=== PATIENT | female | born 1995 | race Caucasian/White ===

== ENCOUNTER 2024-06-03 14:47 | Emergency (ER) | payer OTHER ==
[2024-06-03 15:40] VITALS: TEMP 98.6
--- NOTE | 2024-06-03 15:40 | ED ---
Back Pain HPI - General Chief Complaint: Back Pain/Injury Stated Complaint: Fall-Back Pain Time Seen by Provider: 06/03/24 15:00 Source: patient, RN notes reviewed Limitations: no limitations - History of Present Illness Initial Comments: This is a 28-year-old female presenting to the emergency department for complaints of back pain. Patient states that earlier today she was in her bedroom when she fell hitting the lower part of her back on the frame of her bed. Patient denies hitting her head or loss conscious at time of the injury. She is complaining of pain to the lumbar spine that is nonradiating. She denies loss of bladder bowel continence or saddle esthesia since the injury. - Related Data Allergies Allergy/AdvReac Type Severity Reaction Status Date / Time sulfamethoxazole Allergy Nausea & Verified 06/03/24 15:40 [From Bactrim] Vomiting trimethoprim [From Bactrim] Allergy Nausea & Verified 06/03/24 15:40 Vomiting Review of Systems ROS Statement: Those systems with pertinent positive or pertinent negative responses have been documented in the HPI. ROS Other: All systems not noted in ROS Statement are negative. Past Medical History Past Medical History: No Reported History Past Surgical History: Section Additional Past Surgical History / Comment(s): c section x 4 Past Psychological History: No Psychological Hx Reported Smoking Status: Never smoker Past Alcohol Use History: None Reported Past Drug Use History: None Reported General Exam Limitations: no limitations General appearance: alert, in no apparent distress Neck exam: Present: normal inspection. Absent: tenderness, meningismus, lymphadenopathy Respiratory exam: Present: normal lung sounds bilaterally. Absent: respiratory distress, wheezes, rales, rhonchi, stridor Cardiovascular Exam: Present: regular rate, normal rhythm, normal heart sounds. Absent: systolic murmur, diastolic murmur, rubs, gallop, clicks GI/Abdominal exam: Present: soft, normal bowel sounds. Absent: distended, tenderness, guarding, rebound, rigid Extremities exam: Present: normal inspection, full ROM, normal capillary refill. Absent: tenderness, pedal edema, joint swelling, calf tenderness Back exam: Present: normal inspection, tenderness (lumbar to palpation and with ROM). Absent: CVA tenderness (R), CVA tenderness (L) Skin exam: Present: warm, dry, intact, normal color. Absent: rash Course Vital Signs 06/03/24 06/03/24 15:36 18:16 Temperature 98.6 F Pulse Rate 68 70 Respiratory 18 16 Rate Blood Pressure 127/86 146/100 O2 Sat by Pulse 100 100 Oximetry Medical Decision Making - Medical Decision Making Was pt. sent in by a medical professional or institution (, [facility], [facility], urgent care, hospital, or retirement...) When possible be specific @ -No Did you speak to anyone other than the patient for history (EMS, parent, family, police, friend...)? What history was obtained from this source @ -No Did you review nursing and triage notes (agree or disagree)? Why? @ -I reviewed and agree with nursing and triage notes Were old charts reviewed (outside hosp., previous admission, EMS record, old EKG, old radiological studies, urgent care reports/EKG's, retirement records)? Report findings @ -No old charts were reviewed Differential Diagnosis (chest pain, altered mental status, abdominal pain women, abdominal pain men, vaginal bleeding, weakness, fever, dyspnea, syncope, headache, dizziness, GI bleed, back pain, seizure, CVA, palpatations, mental health, musculoskeletal)? @ -Differential Back Pain: Strain, zoster, cauda equina syndrome, epidural abscess, vertebral osteomyelitis, discitis, fracture, subluxation, disc herniation, DJD, spinal stenosis, dissection, AAA, pancreatitis, peptic ulcer disease, pyelonephritis, kidney stone, this is not meant to be an all-inclusive list. EKG interpreted by me (3pts min.). @ -None X-rays interpreted by me (1pt min.). @ -X-ray of the lumbar spine completed with no vertebral compression collapse or malalignment CT interpreted by me (1pt min.). @ -None done U/S interpreted by me (1pt. min.). @ -None done What testing was considered but not performed or refused? (CT, X-rays, U/S, labs)? Why? @ -None What meds were considered but not given or refused? Why? @ -None Did you discuss the management of the patient with other professionals (professionals i.e. , [facility], [facility], lab, RT, psych nurse, sr. social media & mobile manager, medical billing supervisor, teacher, consular officer, binder caser)? Give summary @ -No Was smoking cessation discussed for >3mins.? @ -No Was critical care preformed (if so, how long)? @ -No Were there social determinants of health that impacted care today? How? (Homelessness, low income, unemployed, alcoholism, drug addiction, transpor tation, low edu. Level, literacy, decrease access to med. care, fpc, rehab)? @ -No Was there de-escalation of care discussed even if they declined (Discuss DNR or withdrawal of care, Hospice)? DNR status @ -No What co-morbidities impacted this encounter? (DM, HTN, Smoking, COPD, CAD, Cancer, CVA, ARF, Chemo, Hep., AIDS, mental health diagnosis, sleep apnea, morbid obesity)? @ -None Was patient admitted / discharged? Hospital course, mention meds given and route, prescriptions, significant lab abnormalities, going to OR and other pertinent info. @ -Discharge. 28-year-old female presenting to emergency room with lumbar back pain. Pain is reproduced with range of motion. No red flag findings or symptoms. She is provided with Toradol for pain relief. Recommended continue supportive treatment at home. Case discussed with Dr. Gonzalez Undiagnosed new problem with uncertain prognosis? @ -No Drug Therapy requiring intensive monitoring for toxicity (Heparin, Nitro, Insulin, Cardizem)? @ -No Were any procedures done? @ -No Diagnosis/symptom? @ -Lower back pain, back strain Acute, or Chronic, or Acute on Chronic? @ -Acute Uncomplicated (without systemic symptoms) or Complicated (systemic symptoms)? @ -Uncomplicated Side effects of treatment? @ -No Exacerbation, Progression, or Severe Exacerbation? @ -No Poses a threat to life or bodily function? How? (Chest pain, [place], [place], pneumonia, PE, COPD, DKA, ARF, appy, cholecystitis, CVA, Diverticulitis, Homicidal, Suicidal, threat to staff... and all critical care pts) @ -No Disposition Clinical Impression: Lumbar back pain Disposition: HOME SELF-CARE Condition: Good Instructions (If sedation given, give patient instructions): Acute Low Back Pain (ED) Additional Instructions: Please return to the Emergency Department if symptoms worsen or any other concerns. Is patient prescribed a controlled substance at d/c from ED?: No Referrals: None,Stated [Primary Care Provider] - 1-2 days Time of Disposition: 17:42
--- NOTE | 2024-06-03 16:05 | XR ---
EXAMINATION TYPE: XR lumbar spine 3V DATE OF EXAM: 06/03/2024 3:59 PM COMPARISON: None CLINICAL INDICATION: Female, 28 years old with history of fall, pain; PHH, pain FINDINGS: Slight leftward truncal shift. 5 lumbar type vertebral bodies. Mild facet arthropathy lower lumbar sp ine. Mild degenerative disc disease L5-S1 with mild disc space narrowing. Regional body heights are p reserved and alignment is maintained. IMPRESSION: Mild spondylotic change L5-S1. No vertebral compression collapse or malalignment. [facility], Workstation: [facility], 06/03/2024 4:03 PM
[2024-06-03] MEDS: KETOROLAC 15 MG/ML 1 ML VIAL IM STA (17:27)
[2024-06-03 18:23] VITALS: BP 146/100; PULSE 70; RESP 16
== END 2024-06-03 18:51 | disposition home or self-care (01) ==
LOC: EC 14:47
DX: S39.012A Strain of muscle, fascia and tendon of lower back, initial encounter (principal); Z88.2 Allergy status to sulfonamides; W06.XXXA Fall from bed, initial encounter
CPT/HCPCS: 72100; 99283; 96372; J1885

== ENCOUNTER 2024-06-07 02:16 | Observation (INO) | payer OTHER ==
[2024-06-07] MEDS: MORPHINE SULFATE 4 MG/ML SYRINGE IV STA (03:04)
[2024-06-07] MEDS: SODIUM CHLORIDE 0.9% 500 ML 500 ML IV ONE (03:04)
[2024-06-07 03:17] LABS: Basophils # (A) 0.04 10*3/uL (0.00-0.10); Basophils % (A) 0.3 %; Eosinophils % (A) 1.5 %; HCT 31.1 % (37.2-46.3); HGB 9.7 g/dL (12.0-15.0); Lymphocytes # (A) 1.85 10*3/uL (0.90-5.00); Lymphocytes % (A) 13.4 %; MCHC 31.2 g/dL (32.0-37.0); MCV 73.7 fL (80.0-97.0); Monocytes # (A) 0.83 10*3/uL (0.20-1.00); Neutrophils # (A) 10.79 10*3/uL (1.80-7.70); Neutrophils % (A) 78.4 %; Platelet Count 396 10*3/uL (140-440); RBC 4.22 10*6/uL (4.10-5.20); RDW 17.2 % (11.5-14.5); WBC 13.76 10*3/uL (4.50-10.00)
[2024-06-07 03:20] LABS: Appearance,Urine Clear (Clear); Bilirubin,Urine Negative (Negative); Blood,Urine Negative (Negative); Color,Urine Colorless; Glucose,Urine (UA) Negative (Negative); Ketones,Urine Negative (Negative); Leukocyte Esterase,Urine Negative (Negative); Nitrite,Urine Negative (Negative); PH, Urine 7.5 (5.0-8.0); Protein,Urine Negative (Negative); Specific Gravity,Urine 1.008 (1.001-1.035); Urobilinogen,Urine <2.0 mg/dL (<2.0)
[2024-06-07 03:37] LABS: Amylase 77 U/L (30-110); C Reactive Protein <0.5 mg/dL (<1.0); Lipase 176 U/L (23-300)
[2024-06-07 03:59] LABS: ALT 16 U/L (4-34); AST 20 U/L (14-36); African American GFR (CKD) >90 (>60 ml/min/1.73 sqM); Albumin 4.3 g/dL (3.5-5.0); Alkaline Phosphatase 60 U/L (38-126); Anion Gap 13 mmol/L; Blood Urea Nitrogen 15 mg/dL (7-17); Calcium 10.2 mg/dL (8.4-10.2); Carbon Dioxide 21 mmol/L (22-30); Chloride 104 mmol/L (98-107); Glucose 101 mg/dL (74-99); Non-African American GFR(CKD) >90 (>60 ml/min/1.73 sqM); Potassium 3.9 mmol/L (3.5-5.1); Sodium 138 mmol/L (137-145); Total Bilirubin 0.4 mg/dL (0.2-1.3); Total Protein 7.5 g/dL (6.3-8.2)
--- NOTE | 2024-06-07 04:06 | CT ---
EXAM: CT Abdomen and Pelvis With Intravenous Contrast CLINICAL HISTORY: ITS.REASON CT Reason: BLQ abdominal pain TECHNIQUE: Axial computed tomography images of the abdomen and pelvis with intravenous contrast. CTDI is 17.5 mGy and DLP is 730.8 mGy-cm. This CT exam was performed using one or more of the following dose reduction techniques: automated exposure control, adjustment of the mA and/or kV according to patient size, and/or use of iterative reconstruction technique. COMPARISON: No relevant prior studies available. FINDINGS: Lung bases: Unremarkable. No mass. No consolidation. ABDOMEN: Liver: Mild enlargement of the liver. No evidence of hepatic mass. Findings suggestive of hepatic steatosis with focal fatty sparing seen along the falciform ligament. Gallbladder and bile ducts: Unremarkable. No calcified stones. No ductal dilation. Pancreas: Unremarkable. No mass. No ductal dilation. Spleen: Unremarkable. No splenomegaly. Adrenals: Unremarkable. No mass. Kidneys and ureters: Unremarkable. No solid mass. No hydronephrosis. Stomach and bowel: The stomach is decompressed although suggestion of bladder wall thickening. Fluid-filled prominent loops of small bowel are seen within the abdomen and pelvis. Mild small bowel wall thickening. No obstruction. PELVIS: Appendix: Mild enlargement of the appendix measuring 7 mm. Bladder: Mild bladder wall thickening. Reproductive: 4.5 cm cystic lesion seen within the left adnexa. The right adnexa and uterus are unremarkable. ABDOMEN and PELVIS: Intraperitoneal space: Unremarkable. No free air. No significant fluid collection. Bones/joints: No acute fracture. No dislocation. Soft tissues: Unremarkable. Vasculature: Unremarkable. No abdominal aortic aneurysm. Lymph nodes: Unremarkable. No enlarged lymph nodes. IMPRESSION: 1. Findings suggestive of infectious or inflammatory enteritis without evidence of obstruction. 2. Mild enlargement of the appendix which may represent acute appendicitis in the correct clinical setting. 3. Nonspecific bladder wall thickening. Consider correlation with urinalysis for cystitis. 4. Likely left ovarian cyst. Recommend follow-up ultrasound in 3-6 months time.
[2024-06-07] MEDS ORDERED: ONDANSETRON 4 MG/2 ML VIAL IVP PRN (04:28)
[2024-06-07] MEDS ORDERED: NALOXONE 0.4 MG/ML 1 ML VIAL IV PRN (04:28)
[2024-06-07] MEDS: AMPICILLIN-SULBACTAM 3 GM in SODIUM CHLORIDE 0.9% 100 ML IVPB SCH (05:14)
[2024-06-07] MEDS: SODIUM CHLORIDE 0.9% 1,000 ML IV SCH (05:14)
--- NOTE | 2024-06-07 05:33 | ED ---
Abdominal Pain HPI - General Chief Complaint: Abdominal Pain Stated Complaint: Abdominal Pain Source: patient, EMS Limitations: no limitations - History of Present Illness Initial Comments: This patient is a 28-year-old woman who presents to be evaluated for low abdominal pain. She indicates the suprapubic area also little bit to each side of that. She states that she had been having a little bit of low abdominal pain and then she noticed that it was much worse after she had intercourse tonight. She indicates severe cramping. No relieving factors. No fever or chills. No nausea. She has had a couple of loose bowel movements going back up to 2 days that she attributed to being stressed. She has not noted a change in urination. No vaginal discharge. Of note the patient had been seen here on Monday to have evaluation for pain in the left lumbar area of the back on the right side. She had reported having a fall and then the pain had been there after that. MD Complaint: abdominal pain, flank pain Onset/Timin -: hour(s) Location: RLQ, suprapubic Radiation: none Migration to: no migration Severity: severe Quality: aching, other (Cramping) Consistency: constant Improves With: other ([place]) Worsens With: nothing Associated Symptoms: diarrhea - Related Data Allergies Allergy/AdvReac Type Severity Reaction Status Date / Time sulfamethoxazole Allergy Nausea & Verified 06/03/24 15:40 [From Bactrim] Vomiting trimethoprim [From Bactrim] Allergy Nausea & Verified 06/03/24 15:40 Vomiting Review of Systems ROS Statement: Those systems with pertinent positive or pertinent negative responses have been documented in the HPI. ROS Other: All systems not noted in ROS Statement are negative. Constitutional: Denies: fever, chills, weakness Respiratory: Denies: cough, dyspnea Cardiovascular: Denies: chest pain, palpitations, edema Gastrointestinal: Reports: abdominal pain, diarrhea. Denies: nausea, vomiting, constipation, melena, hematochezia Genitourinary: Denies: dysuria, frequency, hematuria Musculoskeletal: Denies: back pain Skin: Denies: rash, lesions Neurological: Denies: headache, weakness Past Medical History Past Medical History: No Reported History History of Any Multi-Drug Resistant Organisms: None Reported Past Surgical History: Section Additional Past Surgical History / Comment(s): c section x 4 Past Psychological History: Anxiety Smoking Status: Never smoker Past Alcohol Use History: None Reported Past Drug Use History: None Reported General Exam Limitations: no limitations General appearance: alert, in no apparent distress Head exam: Present: atraumatic, normocephalic Eye exam: Present: normal appearance. Absent: scleral icterus, conjunctival injection ENT exam: Present: normal oropharynx Neck exam: Present: normal inspection Respiratory exam: Present: normal lung sounds bilaterally. Absent: respiratory distress, wheezes, rales, rhonchi, stridor, accessory muscle use Cardiovascular Exam: Present: regular rate, normal rhythm, normal heart sounds. Absent: systolic murmur, diastolic murmur, rubs, gallop GI/Abdominal exam: Present: soft, tenderness. Absent: distended, guarding, rebound, rigid, pulsatile mass, hernia External exam: Present: normal external exam. Absent: erythema, swelling, lesions, ecchymosis Speculum exam: Present: normal speculum exam. Absent: erythema, vaginal discharge, cervical discharge, vaginal bleeding, tissue, laceration Extremities exam: Present: normal inspection Back exam: Present: normal inspection. Absent: CVA tenderness (R), CVA tenderness (L) Neurological exam: Present: alert Skin exam: Present: warm, dry, intact, normal color. Absent: rash Course Vital Signs 06/07/24 06/07/24 06/07/24 02:18 03:09 05:15 Temperature 99.0 F Pulse Rate 127 H 67 68 Respiratory 20 16 18 Rate Blood Pressure 91/75 113/76 117/67 O2 Sat by Pulse 100 100 99 Oximetry Medical Decision Making - Lab Data Result diagrams: 06/07/24 02:59 06/07/24 02:59 Lab Results 06/07/24 06/07/24 06/07/24 Range/Units 02:59 02:59 02:59 WBC 13.76 H (4.50-10.00) 10*3/uL RBC 4.22 (4.10-5.20) 10*6/uL Hgb 9.7 L (12.0-15.0) g/dL Hct 31.1 L (37.2-46.3) % MCV 73.7 L (80.0-97.0) fL MCH 23.0 L (27.0-32.0) pg MCHC 31.2 L (32.0-37.0) g/dL Plt Count 396 (140-440) 10*3/uL MPV 10.0 (9.5-12.2) fL Immature Gran % (Auto) 0.4 % Neutrophils % 78.4 % Lymphocytes % 13.4 % Monocytes % 6.0 % Eosinophils % 1.5 % Basophils % 0.3 % Immature Gran # 0.05 H (0.00-0.04) 10*3/uL Neutrophils # 10.79 H (1.80-7.70) 10*3/uL Lymphocytes # 1.85 (0.90-5.00) 10*3/uL Monocytes # 0.83 (0.20-1.00) 10*3/uL Eosinophils # 0.20 (0.04-0.35) 10*3/uL Basophils # 0.04 (0.00-0.10) 10*3/uL Sodium (137-145) mmol/L Potassium (3.5-5.1) mmol/L Chloride (98-107) mmol/L Carbon Dioxide (22-30) mmol/L Anion Gap mmol/L BUN (7-17) mg/dL Creatinine (0.52-1.04) mg/dL Est GFR (CKD-EPI)AfAm (>60 ml/min/1.73 sqM) Est GFR (CKD-EPI)NonAf (>60 ml/min/1.73 sqM) Glucose (74-99) mg/dL Plasma Lactic Acid Jovan 1.1 (0.7-2.0) mmol/L Calcium (8.4-10.2) mg/dL Total Bilirubin (0.2-1.3) mg/dL AST (14-36) U/L ALT (4-34) U/L Alkaline Phosphatase (38-126) U/L C-Reactive Protein <0.5 (<1.0) mg/dL Total Protein (6.3-8.2) g/dL Albumin (3.5-5.0) g/dL Amylase 77 (30-110) U/L Lipase 176 (23-300) U/L Urine Color Urine Appearance (Clear) Urine pH (5.0-8.0) Ur Specific [place] (1.001-1.035) Urine Protein (Negative) Urine Glucose (UA) (Negative) Urine Ketones (Negative) Urine Blood (Negative) Urine Nitrite (Negative) Urine Bilirubin (Negative) Urine Urobilinogen (<2.0) mg/dL Ur Leukocyte Esterase (Negative) Urine HCG, Qual (Not Detectd) 06/07/24 06/07/24 06/07/24 Range/Units 02:59 03:05 03:05 WBC (4.50-10.00) 10*3/uL RBC (4.10-5.20) 10*6/uL Hgb (12.0-15.0) g/dL Hct (37.2-46.3) % MCV (80.0-97.0) fL MCH (27.0-32.0) pg MCHC (32.0-37.0) g/dL Plt Count (140-440) 10*3/uL MPV (9.5-12.2) fL Immature Gran % (Auto) % Neutrophils % % Lymphocytes % % Monocytes % % Eosinophils % % Basophils % % Immature Gran # (0.00-0.04) 10*3/uL Neutrophils # (1.80-7.70) 10*3/uL Lymphocytes # (0.90-5.00) 10*3/uL Monocytes # (0.20-1.00) 10*3/uL Eosinophils # (0.04-0.35) 10*3/uL Basophils # (0.00-0.10) 10*3/uL Sodium 138 (137-145) mmol/L Potassium 3.9 (3.5-5.1) mmol/L Chloride 104 (98-107) mmol/L Carbon Dioxide 21 L (22-30) mmol/L Anion Gap 13 mmol/L BUN 15 (7-17) mg/dL Creatinine 0.66 (0.52-1.04) mg/dL Est GFR (CKD-EPI)AfAm >90 (>60 ml/min/1.73 sqM) Est GFR (CKD-EPI)NonAf >90 (>60 ml/min/1.73 sqM) Glucose 101 H (74-99) mg/dL Plasma Lactic Acid Jovan (0.7-2.0) mmol/L Calcium 10.2 (8.4-10.2) mg/dL Total Bilirubin 0.4 (0.2-1.3) mg/dL AST 20 (14-36) U/L ALT 16 (4-34) U/L Alkaline Phosphatase 60 (38-126) U/L C-Reactive Protein (<1.0) mg/dL Total Protein 7.5 (6.3-8.2) g/dL Albumin 4.3 (3.5-5.0) g/dL Amylase (30-110) U/L Lipase (23-300) U/L Urine Color Colorless Urine Appearance Clear (Clear) Urine pH 7.5 (5.0-8.0) Ur Specific [place] 1.008 (1.001-1.035) Urine Protein Negative (Negative) Urine Glucose (UA) Negative (Negative) Urine Ketones Negative (Negative) Urine Blood Negative (Negative) Urine Nitrite Negative (Negative) Urine Bilirubin Negative (Negative) Urine Urobilinogen <2.0 (<2.0) mg/dL Ur Leukocyte Esterase Negative (Negative) Urine HCG, Qual Not Detected (Not Detectd)
[2024-06-07] MEDS: MORPHINE SULFATE 4 MG/ML SYRINGE IV PRN (06:44)
[2024-06-07] MEDS: metroNIDAZOLE-NS PMX 500 MG in SALINE 1 100ML.BAG IVPB SCH (06:45)
[2024-06-07] MEDS: PANTOPRAZOLE 40 MG/10 ML VIAL IV SCH (09:29)
--- NOTE | 2024-06-07 11:55 | XR ---
EXAMINATION TYPE: XR chest 2V DATE OF EXAM: 06/07/2024 11:52 AM COMPARISON: None. CLINICAL INDICATION: Female, 28 years old with history of cough, Chest pain TECHNIQUE: XR chest 2V views of the chest are obtained. FINDINGS: There is no focal air space opacity. No evidence for pneumothorax. No pleural effusion. The cardiac silhouette size is within normal limits. The osseous structures are grossly intact. IMPRESSION: 1. No acute cardiopulmonary process. [facility], , 06/07/2024 11:53 AM
--- NOTE | 2024-06-07 15:20 | P.GSHP ---
History of Present Illness H&P Date: 06/07/24 CHIEF COMPLAINT: Abdominal pain HISTORY OF PRESENT ILLNESS: This is a 28-year-old female who presented the hospital with complaints of lower abdominal pain. She was initially in the ER a few days ago after a fall with complaints of right lower back pain. Patient denies any nausea or vomiting. She reports feeling constipated. However a couple of days ago she did have some loose bowel movements. She denies any nausea or vomiting. Her last bowel movement was yesterday and it was a hard stool. She is having flatus. She does report some vaginal discharge. She had a CT scan abdomen pelvis that had reported enteritis and mild enlargement of the appendix at 7 mm. Patient denies any right lower quadrant abdominal pain. She does report urinary frequency and feels like she is not emptying her bladder all the way. She has a surgical history of 4 C-sections. Patient also complains of sore throat. She reports her boyfriend was just diagnosed with strep and mono. Patient complaining of cough and congestion. Patient is anemic. Denies any blood in her stools or black stools. Patient reports she has a history of chronic anemia especially during her pregnancies and has been on iron in the past. PAST MEDICAL HISTORY: Anxiety, history of anemia PAST SURGICAL HISTORY: x 4 MEDICATIONS: See below ALLERGIES: See below SOCIAL HISTORY: No illicit drug use. REVIEW OF SYSTEMS: CONSTITUTIONAL: Denies fever or chills. HEENT: Denies blurred vision, vision changes, or eye pain. Denies hemoptysis CARDIOVASCULAR: Denies chest pain or pressure. RESPIRATORY: No shortness of breath. GASTROINTESTINAL: See HPI for pertinent findings HEMATOLOGIC: Denies bleeding disorders. GENITOURINARY: Denies any blood in urine or increased urinary frequency. SKIN: Denies pruitis. Denies rash. PHYSICAL EXAM: VITAL SIGNS: Reviewed GENERAL: Well-developed in no acute distress. HEENT: No sclera icterus. Extraocular movements grossly intact. Moist buccal mucosa. Head is atraumatic, normocephalic. No nasal drainage. ABDOMEN: Soft. Nondistended. Tenderness palpation in the suprapubic area.. Nontender in the right lower quadrant NEUROLOGIC: Alert and oriented. Cranial nerves II through XII grossly intact. LABORATORY DATA: WBC 13.76 Hgb 9.7 platelets 396 Sodium is 138 potassium 3.9 creatinine 0.66 Lactic acid 1.1 LFTs normal Lipase 176 Urinalysis negative for infection Group A strep positive IMAGING: CT scan abdomen pelvis findings suggestive of infectious or inflammatory enteritis without evidence of obstruction. Mild enlargement of the appendix may represent acute appendicitis correlate clinically. Nonspecific bladder wall thickening consider correlation with urinalysis for cystitis. Left ovarian cyst. Recommend follow-up ultrasound 3 to 6 months time. ASSESSMENT: 1. Abdominal pain 2. Gastroenteritis. Suprapubic abdominal pain with CT scan findings suggestive of infectious or inflammatory enteritis. Mild enlargement of the appendix. 3. Vaginal discharge. Ruling out STD 4. Strep throat 5. Cough and congestion 6. Possible urinary retention PLAN: -No surgical intervention planned. No right lower quadrant tenderness noted on exam -Possible gastroenteritis versus STD. PCR for chlamydia and gonorrhea pending. Continue antibiotics, Rocephin and Flagyl -Continue antibiotics for strep throat -Chest x-ray ordered for cough and congestion -Check bladder scan to rule out urinary retention -Advance diet to clear liquids -Continue IV fluids -Continue pain management -Consult medicine service for medical management -GI prophylaxis Protonix and DVT prophylaxis subcu heparin Phys[employer] Pain[employer] note has been reviewed by physician. Signing provider agrees with the documented findings, assessment, and plan of care. Past Medical History Past Medical History: No Reported History Additional Past Medical History / Comment(s): kidney stones History of Any Multi-Drug Resistant Organisms: None Reported Past Surgical History: Section Additional Past Surgical History / Comment(s): c section x 4, blood patch Past Psychological History: Anxiety Smoking Status: Never smoker Past Alcohol Use History: None Reported Past Drug Use History: None Reported Medications and Allergies Home Medications Medication Instructions Recorded Confirmed Type No Known Home Medications 06/07/24 06/07/24 History Allergies Allergy/AdvReac Type Severity Reaction Status Date / Time banana Allergy Unknown Verified 06/07/24 06:16 sulfamethoxazole AdvReac Nausea & Verified 06/07/24 06:16 [From Bactrim] Vomiting trimethoprim [From Bactrim] AdvReac Nausea & Verified 06/07/24 06:16 Vomiting Surgical - Exam Osteopathic Statement: *. No significant issues noted on an osteopathic structural exam other than those noted in the History and Physical/Consult. Vital Signs Temp Pulse Resp BP Pulse Ox 99.0 F 127 H 20 91/75 100 06/07/24 02:18 06/07/24 02:18 06/07/24 02:18 06/07/24 02:18 06/07/24 02:18 Results - Labs 06/08/24 04:24 06/08/24 04:24 Abnormal Lab Results - Last 24 Hours (Table) 06/07/24 06/07/24 Range/Units 02:59 02:59 WBC 13.76 H (4.50-10.00) 10*3/uL Hgb 9.7 L (12.0-15.0) g/dL Hct 31.1 L (37.2-46.3) % MCV 73.7 L (80.0-97.0) fL MCH 23.0 L (27.0-32.0) pg MCHC 31.2 L (32.0-37.0) g/dL Immature Gran # 0.05 H (0.00-0.04) 10*3/uL Neutrophils # 10.79 H (1.80-7.70) 10*3/uL Carbon Dioxide 21 L (22-30) mmol/L Glucose 101 H (74-99) mg/dL Diabetes panel 06/07/24 Range/Units 02:59 Sodium 138 (137-145) mmol/L Potassium 3.9 (3.5-5.1) mmol/L Chloride 104 (98-107) mmol/L Carbon Dioxide 21 L (22-30) mmol/L BUN 15 (7-17) mg/dL Creatinine 0.66 (0.52-1.04) mg/dL Glucose 101 H (74-99) mg/dL Calcium 10.2 (8.4-10.2) mg/dL AST 20 (14-36) U/L ALT 16 (4-34) U/L Alkaline Phosphatase 60 (38-126) U/L Total Protein 7.5 (6.3-8.2) g/dL Albumin 4.3 (3.5-5.0) g/dL Calcium panel 06/07/24 Range/Units 02:59 Calcium 10.2 (8.4-10.2) mg/dL Albumin 4.3 (3.5-5.0) g/dL Pituitary panel 06/07/24 Range/Units 02:59 Sodium 138 (137-145) mmol/L Potassium 3.9 (3.5-5.1) mmol/L Chloride 104 (98-107) mmol/L Carbon Dioxide 21 L (22-30) mmol/L BUN 15 (7-17) mg/dL Creatinine 0.66 (0.52-1.04) mg/dL Glucose 101 H (74-99) mg/dL Calcium 10.2 (8.4-10.2) mg/dL Adrenal panel 06/07/24 Range/Units 02:59 Sodium 138 (137-145) mmol/L Potassium 3.9 (3.5-5.1) mmol/L Chloride 104 (98-107) mmol/L Carbon Dioxide 21 L (22-30) mmol/L BUN 15 (7-17) mg/dL Creatinine 0.66 (0.52-1.04) mg/dL Glucose 101 H (74-99) mg/dL Calcium 10.2 (8.4-10.2) mg/dL Total Bilirubin 0.4 (0.2-1.3) mg/dL AST 20 (14-36) U/L ALT 16 (4-34) U/L Alkaline Phosphatase 60 (38-126) U/L Total Protein 7.5 (6.3-8.2) g/dL Albumin 4.3 (3.5-5.0) g/dL Assessment and Plan Assessment: 28 yo female w/ suprapubic pain recent diagnosis of strep a - no signs of appendicitis at this time, will continue to monitor -continue rocephin/flagyl -appreciate IM recs, thank you -start clear liquid diet Time with Patient: Greater than 30
[2024-06-07] MEDS: LACTATED RINGERS 1,000 ML IV SCH (16:13)
[2024-06-07] MEDS ORDERED: guaiFENesin 600 MG TABLET.ER PO PRN (16:47)
[2024-06-07] MEDS ORDERED: BENZOCAINE/MENTHOL LOZENG 1 EACH LOZENGE MUCOUS MEM PRN (16:47)
--- NOTE | 2024-06-07 16:56 | P.CONS ---
History of Present Illness - Reason for Consult Consult date: 06/07/24 - History of Present Illness Subjective: Patient is a 28-year-old female presented to the hospital with complaints of lower abdominal pain. Patient states after having intercourse that she felt a sudden abdominal pain that radiated to her right flank. She describes it as a severe burning/tingling sensation that was made worse upon movement. She says she felt chills however she denied any fever, nausea, vomiting. During interview patient states her pain is 8 out of 10 despite given morphine. She states she has never had pain like this before. She denies any right lower quadrant abdominal pain. She admits to urinary frequency but denies dysuria. She is sexually active with 1 male partner. Her last menstrual period was May 12, 2024. Patient admits to having a sore throat for the past few days. Her boyfriend just recently tested positive for strep pharyngitis. Patient denies any fever, chest pain, shortness of breath. Pertinent positives and negatives as discussed above, a complete review of systems was performed and all other systems are negative. Vitals: Signs Reviewed Physical Exam: General: nontoxic, no distress, appears at stated age Derm: warm, dry, intact Head: atraumatic, normocephalic, symmetric Eyes: EOMI, anicteric sclera Mouth: no lip lesion, mucus membranes moist Cardiovascular: S1 S2 reg, no murmur, rubs, or gallops Lungs: CTA bilateral, no rhonchi, no rales, no accessory muscle use Abdominal: soft, tender to palpataion mostly in suprapubic region, no tenderness in right upper/lower quadrant, no appreciable organomegaly Extremities: no gross muscle atrophy, no edema, no contractures Neuro: Alert, Oriented, CNII-XII grossly intact, gait normal Psych: well appearing, appropriate affect Data Received Today: Pertinent Labs: WBC 13.76, Hgb 9.7, MCV 73.7 UA unremarkable Urine hCG unremarkable Imaging: CXR: independently interpreted displaying no acute cardiopulmonary process Abdomen/pelvis CT: displaying mild enlargement of the appendix which may rep resent acute appendicitis, nonspecific bladder wall thickening, left ovarian cyst (f/u 3-6 months), infectious/inflammatory enteritis with no evidence of obstruction Assessment and Plan: Patient is a 28-year-old female with no significant medical history presenting with acute abdominal pain. #. Sepsis likely secondary to complicated acute enteritis pt with tachycardia at 127 bpm and neutrophilic leukocytosis w/ left shift, WBC at 13.76 CT abdomen reviewed as above Lactic acid negative Telemetry monitoring LR at 130 cc an hour No blood cultures obtained prior to antibiotics, will order blood cultures Currently on Rocephin 1 g IVPB every 24 hours and Flagyl 500 mg IVPB every 8 hours which should cover gram negative and anaerobes #. Strep pharyngitis Group A strep PCR positive Rocephin 1 gm IVPB q 24hr Cepacol lozenge and mucinex prn #. Microcytic anemia #. Iron Deficiency anemia Hemoglobin 9.7, MCV 73.3 No signs of active bleeding LMP 05/12/2024 Obtain iron studies #Vaginal discharge Possible vulvovaginal candidiasis Patient declines any treatment at this time Follow GC/Chlamydia DVT prophylaxis, GI, ppx, pain management deferred to primary surgery service Code status: Full code Pilar Olson MD PGY-1 IM Dictation was produced using [employer] dictation software. please excuse any grammatical, word or spelling errors. I have seen and evaluated the patient today. Discussed with the resident and agree with the residents finding and plan as documented in the resident's note. Changes highlighted in blue font. Past Medical History Past Medical History: No Reported History Additional Past Medical History / Comment(s): kidney stones History of Any Multi-Drug Resistant Organisms: None Reported Past Surgical History: Section Additional Past Surgical History / Comment(s): c section x 4, blood patch Past Psychological History: Anxiety Smoking Status: Never smoker Past Alcohol Use History: None Reported Past Drug Use History: None Reported Medications and Allergies Home Medications Medication Instructions Recorded Confirmed Type No Known Home Medications 06/07/24 06/07/24 History Allergies Allergy/AdvReac Type Severity Reaction Status Date / Time banana Allergy Unknown Verified 06/07/24 06:16 sulfamethoxazole AdvReac Nausea & Verified 06/07/24 06:16 [From Bactrim] Vomiting trimethoprim [From Bactrim] AdvReac Nausea & Verified 06/07/24 06:16 Vomiting Physical Exam Vitals: Vital Signs Temp Pulse Pulse Resp BP BP Pulse Ox 06/07/24 07:41 97.9 F 72 15 107/61 98 06/07/24 06:51 97.8 F 73 15 104/65 99 06/07/24 05:15 68 18 117/67 99 06/07/24 03:09 67 16 113/76 100 06/07/24 02:18 99.0 F 127 H 20 91/75 100 Intake and Output 06/07/24 06/07/24 06/07/24 06:59 14:59 22:59 Other: Weight 74.843 kg Results CBC & Chem 7: 06/07/24 02:59 06/07/24 02:59 Labs: Abnormal Lab Results - Last 24 Hours (Table) 06/07/24 06/07/24 06/07/24 Range/Units 02:59 02:59 12:26 WBC 13.76 H (4.50-10.00) 10*3/uL Hgb 9.7 L (12.0-15.0) g/dL Hct 31.1 L (37.2-46.3) % MCV 73.7 L (80.0-97.0) fL MCH 23.0 L (27.0-32.0) pg MCHC 31.2 L (32.0-37.0) g/dL Immature Gran # 0.05 H (0.00-0.04) 10*3/uL Neutrophils # 10.79 H (1.80-7.70) 10*3/uL Carbon Dioxide 21 L (22-30) mmol/L Glucose 101 H (74-99) mg/dL Group A Strep (PCR) DETECTED A (Not Detectd)
[2024-06-07] MEDS: HEPARIN SODIUM,PORCINE 5,000 UNIT/ML 1 ML VIAL SQ SCH (21:02)
[2024-06-08] MEDS: polyethylene glycoL 3350 17 GM POWD.PACK PO STA (01:26)
[2024-06-08 05:37] LABS: Basophils # (A) 0.05 10*3/uL (0.00-0.10); Basophils % (A) 0.4 %; Eosinophils # (A) 0.26 10*3/uL (0.04-0.35); Eosinophils % (A) 2.1 %; HCT 28.3 % (37.2-46.3); HGB 8.6 g/dL (12.0-15.0); Lymphocytes # (A) 2.19 10*3/uL (0.90-5.00); Lymphocytes % (A) 17.8 %; MCHC 30.4 g/dL (32.0-37.0); MCV 75.7 fL (80.0-97.0); Mean Platelet Volume 10.1 fL (9.5-12.2); Monocytes # (A) 0.86 10*3/uL (0.20-1.00); Neutrophils # (A) 8.87 10*3/uL (1.80-7.70); Neutrophils % (A) 72.3 %; Platelet Count 351 10*3/uL (140-440); RBC 3.74 10*6/uL (4.10-5.20); RDW 17.4 % (11.5-14.5); WBC 12.28 10*3/uL (4.50-10.00)
[2024-06-08 05:47] LABS: African American GFR (CKD) >90 (>60 ml/min/1.73 sqM); Anion Gap 10 mmol/L; Blood Urea Nitrogen 6 mg/dL (7-17); Calcium 9.4 mg/dL (8.4-10.2); Carbon Dioxide 24 mmol/L (22-30); Chloride 103 mmol/L (98-107); Glucose 80 mg/dL (74-99); Magnesium 1.8 mg/dL (1.6-2.3); Non-African American GFR(CKD) >90 (>60 ml/min/1.73 sqM); Potassium 4.3 mmol/L (3.5-5.1); Sodium 137 mmol/L (137-145)
[2024-06-08] MEDS ORDERED: bisacodyL 5 MG TABLET.DR PO PRN ×2 (09:41→09:42)
[2024-06-08] MEDS: bisacodyL 5 MG TABLET.DR PO STA (10:12)
[2024-06-08 10:29] LABS: % Iron Saturation 3.65 (12.00-45.00); Ferritin 27.5 ng/mL (10.0-291.0)
--- NOTE | 2024-06-08 11:13 | P.PN ---
Subjective Progress Note Date: 06/08/24 Subjective: Patient is a 28-year-old female presented to the hospital with complaints of lower abdominal pain. Patient states after having intercourse that she felt a sudden abdominal pain that radiated to her right flank. She describes it as a severe burning/tingling sensation that was made worse upon movement. She says she felt chills however she denied any fever, nausea, vomiting. During interview patient states her pain is 8 out of 10 despite given morphine. She states she has never had pain like this before. She denies any right lower quadrant abdominal pain. She admits to urinary frequency but denies dysuria. She is sexually active with 1 male partner. Her last menstrual period was May 12, 2024. Patient admits to having a sore throat for the past few days. Her boyfriend just recently tested positive for strep pharyngitis. Patient denies any fever, chest pain, shortness of breath. Pertinent positives and negatives as discussed above, a complete review of systems was performed and all other systems are negative. Vitals: Signs Reviewed Physical Exam: General: nontoxic, no distress, appears at stated age Derm: warm, dry, intact Head: atraumatic, normocephalic, symmetric Eyes: EOMI, anicteric sclera Mouth: no lip lesion, mucus membranes moist Cardiovascular: S1 S2 reg, no murmur, rubs, or gallops Lungs: CTA bilateral, no rhonchi, no rales, no accessory muscle use Abdominal: soft, tender to palpataion mostly in suprapubic region, no tenderness in right upper/lower quadrant, no appreciable organomegaly Extremities: no gross muscle atrophy, no edema, no contractures Neuro: Alert, Oriented, CNII-XII grossly intact, gait normal Psych: well appearing, appropriate affect Data Received Today: Pertinent Labs: WBC 12.28, Hgb 8.6, MCV 75.7, platelet 351, BUN 6, creatinine 0.69, glucose 80, iron 14, TIBC 384, ferritin 27.5, transferrin 274 UA unremarkable Imaging: Transvaginal US pending Assessment and Plan: Patient is a 28-year-old female with no significant medical history presenting with acute abdominal pain. #. Sepsis likely secondary to infectious enteritis vs PID Pt with tachycardia at 127 bpm and neutrophilic leukocytosis w/ left shift, WBC at 13.[address] abdomen infectious/inflammatory enteritis with no evidence of obstruction, mild enlargement of appendix Lactic acid negative Urine hCG unremarkable Telemetry monitoring LR at 130 cc an hour Lactoferrin and stool cultures pending No blood cultures obtained prior to antibiotics, blood cultures are pending Currently on Rocephin 1 g IVPB q24hr and Flagyl 500 mg IVPB q8hr which should cover gram negative and anaerobes, day #2 HIV/Syphilis/GC/Chlamydia labs pending OGBYN consulted, transvaginal US pending #. Strep pharyngitis Group A strep PCR positive Rocephin 1 gm IVPB q 24hr, day #2 Cepacol lozenge and mucinex prn #. Iron Deficiency anemia Hemoglobin 9.7, MCV 73.3 Iron 14, TIBC 384, ferritin 27.5, transferrin 274 No signs of active bleeding LMP 05/12/2024 Ferrous sulfate 325 mg PO every other day AC-breakfast along with vitamin C #. Vaginal discharge Possible vulvovaginal candidiasis Patient declines any treatment at this time Follow GC/Chlamydia DVT prophylaxis, GI, ppx, pain management deferred to primary surgery service Code status: Full code Pilar Olson MD PGY-1 IM Dictation was produced using [employer] dictation software. please excuse any grammatical, word or spelling errors. I saw and evaluated the patient during the sebastian and critical portions of this encounter, and discussed the case in detail with the resident author of this note, I agree with the Assessment and Plan, and my changes, if any, are highlighted in blue. Objective - Vital Signs Vital signs: Vital Signs Temp 98.2 F 06/08/24 00:48 Pulse 69 06/08/24 00:48 Resp 16 06/08/24 00:48 BP 104/64 06/08/24 00:48 Pulse Ox 99 06/08/24 00:48 FiO2 Intake & Output 06/07/24 06/08/24 06/08/24 18:59 06:59 18:59 Output Total 850 900 Balance -850 -900 Output: Urine 850 900 Other: # Voids 3 - Labs CBC & Chem 7: 06/08/24 04:24 06/08/24 04:24 Labs: Abnormal Lab Results - Last 24 Hours (Table) 06/07/24 06/08/24 06/08/24 Range/Units 12:26 04:24 04:24 WBC 12.28 H (4.50-10.00) 10*3/uL RBC 3.74 L (4.10-5.20) 10*6/uL Hgb 8.6 L (12.0-15.0) g/dL Hct 28.3 L (37.2-46.3) % MCV 75.7 L (80.0-97.0) fL MCH 23.0 L (27.0-32.0) pg MCHC 30.4 L (32.0-37.0) g/dL RDW 17.4 H (11.5-14.5) % Immature Gran # 0.05 H (0.00-0.04) 10*3/uL Neutrophils # 8.87 H (1.80-7.70) 10*3/uL BUN 6 L (7-17) mg/dL Group A Strep (PCR) DETECTED A (Not Detectd)
[2024-06-08] MEDS: ASCORBIC ACID 500 MG TAB PO SCH (11:31)
[2024-06-08] MEDS: FERROUS SULFATE 325 MG TAB PO SCH (11:31)
[2024-06-08] MEDS: HYDROcodone/APAP 5-325MG 1 EACH TAB PO PRN (11:31)
--- NOTE | 2024-06-08 11:58 | P.OBCN ---
History of Present Illness Consult date: 06/07/24 Reason for consult: pelvic pain, ovarian cyst Chief complaint: abdominal/pelvic pain History of present illness: 28 yo that was presented to [facility] yesterday via EMS for severe pelvic/abdominal pain. Patient states she was having intercourse yesterday and noted severe pain about a minute after they finished, patient denied bleeding afterwards. Patient states she was so uncomfortable she was unable to get out of bed therefore she called EMS for transport. Patient was admitted for pain control CAT scan done revealing infectious enteritis, ovarian cyst. Patient states she has regular menstrual cycles every month. Last menstrual period / with a moderate flow. Patient states she does typically get a yeast infection just prior to her menses which resolves without treatment. Patient denies using contraception at this time. Patient states she has been in a monogamous relationship, her partner is the f ather of her 4 children. She denies nausea but notes constipation symptoms, positive flatus. Denies urinary concerns Negative testing in emergency department, patient did test positive fo r strep pharyngitis. Review of Systems Constitutional: Reports fatigue, Denies fever Ears, nose, mouth and throat: Denies headache Cardiovascular: Denies leg edema Respiratory: Denies dyspnea Gastrointestinal: Reports constipation, Denies diarrhea, Denies nausea, Denies vomiting Genitourinary: Reports vaginal discharge, Denies Menstruation: Reports period normal Past Medical History Past Medical History: No Reported History Additional Past Medical History / Comment(s): kidney stones History of Any Multi-Drug Resistant Organisms: None Reported Past Surgical History: Section Additional Past Surgical History / Comment(s): c section x 4, blood patch Past Psychological History: Anxiety Smoking Status: Never smoker Past Alcohol Use History: None Reported Past Drug Use History: None Reported Medications and Allergies Home Medications Medication Instructions Recorded Confirmed Type No Known Home Medications 06/07/24 06/07/24 History Allergies Allergy/AdvReac Type Severity Reaction Status Date / Time banana Allergy Unknown Verified 06/07/24 06:16 sulfamethoxazole AdvReac Nausea & Verified 06/07/24 06:16 [From Bactrim] Vomiting trimethoprim [From Bactrim] AdvReac Nausea & Verified 06/07/24 06:16 Vomiting Exam Osteopathic Statement: *. No significant issues noted on an osteopathic structural exam other than those noted in the History and Physical/Consult. Vital Signs Temp Pulse Pulse Resp BP Pulse Ox 06/08/24 07:31 98.4 F 70 18 105/66 99 06/08/24 00:48 98.2 F 69 16 104/64 99 06/07/24 21:00 78 17 06/07/24 18:54 98.9 F 78 17 104/68 99 06/07/24 14:04 99.0 F 82 17 93/59 95 Intake and Output 06/07/24 06/08/24 06/08/24 22:59 06:59 14:59 Output Total 1750 750 Balance -1750 -750 Output: Urine 1750 750 Other: # Voids 3 Targeted physical exam is performed this date patient is a well-nourished well- developed female in no acute distress, resting comfortably in bed. Patient is tearful upon questioning. Breathing appears nonlabored, abdomen is soft Results Result Diagrams: 06/08/24 04:24 06/08/24 04:24 Abnormal Lab Results - Last 24 Hours (Table) 06/07/24 06/08/24 06/08/24 Range/Units 12:26 04:24 04:24 WBC 12.28 H (4.50-10.00) 10*3/uL RBC 3.74 L (4.10-5.20) 10*6/uL Hgb 8.6 L (12.0-15.0) g/dL Hct 28.3 L (37.2-46.3) % MCV 75.7 L (80.0-97.0) fL MCH 23.0 L (27.0-32.0) pg MCHC 30.4 L (32.0-37.0) g/dL RDW 17.4 H (11.5-14.5) % Immature Gran # 0.05 H (0.00-0.04) 10*3/uL Neutrophils # 8.87 H (1.80-7.70) 10*3/uL BUN 6 L (7-17) mg/dL Iron (50-170) UG/DL % Saturation (12.00-45.00) Group A Strep (PCR) DETECTED A (Not Detectd) 06/08/24 Range/Units 04:24 WBC (4.50-10.00) 10*3/uL RBC (4.10-5.20) 10*6/uL Hgb (12.0-15.0) g/dL Hct (37.2-46.3) % MCV (80.0-97.0) fL MCH (27.0-32.0) pg MCHC (32.0-37.0) g/dL RDW (11.5-14.5) % Immature Gran # (0.00-0.04) 10*3/uL Neutrophils # (1.80-7.70) 10*3/uL BUN (7-17) mg/dL Iron 14 L (50-170) UG/DL % Saturation 3.65 L (12.00-45.00) Group A Strep (PCR) (Not Detectd) Assessment and Plan (1) Ovarian cyst Current Visit: Yes Status: Acute Code(s): N83.209 - UNSPECIFIED OVARIAN CYST, UNSPECIFIED SIDE SNOMED Code(s): 35280591 (2) Abdominal pain Current Visit: Yes Status: Acute Code(s): R10.9 - UNSPECIFIED ABDOMINAL PAIN SNOMED Code(s): 85485312 Plan: 28-year-old G4, P4 non patient presenting with abdominal/pelvic pain. Patient beginning after intercourse. CAT scan revealing infectious enteritis and ovarian cyst. Imaging results were discussed with patient. Patient is awaiting transvaginal pelvic ultrasound for further delineation of ovarian cyst. Low suspicion for STD/PID given monogamous relationship of many years. Will await cultures that were obtained previously and ultrasound findings. Will follow along Thank you kindly for this consult.
--- NOTE | 2024-06-08 12:08 | P.PN ---
Subjective Progress Note Date: 06/08/24 Patient states she is feeling much better when laying still. Admits to increased pain with palpation denies nausea, vomiting, fevers, chills, shortness of breath, chest pain. Objective - Vital Signs Vital signs: Vital Signs Temp 98.4 F 06/08/24 07:31 Pulse 70 06/08/24 07:31 Resp 18 06/08/24 07:31 BP 105/66 06/08/24 07:31 Pulse Ox 99 06/08/24 07:31 FiO2 Intake & Output 06/07/24 06/08/24 06/08/24 18:59 06:59 18:59 Output Total 850 900 750 Balance -850 -900 -750 Output: Urine 850 900 750 Other: # Voids 3 - Exam General No acute distress Cardiovascular regular rate and rhythm Pulmonary nonlabored breathing Abdomen soft, tender to palpation in the suprapubic area no guarding or rebound tenderness - Labs CBC & Chem 7: 06/08/24 04:24 06/08/24 04:24 Labs: Abnormal Lab Results - Last 24 Hours (Table) 06/07/24 06/08/24 06/08/24 Range/Units 12:26 04:24 04:24 WBC 12.28 H (4.50-10.00) 10*3/uL RBC 3.74 L (4.10-5.20) 10*6/uL Hgb 8.6 L (12.0-15.0) g/dL Hct 28.3 L (37.2-46.3) % MCV 75.7 L (80.0-97.0) fL MCH 23.0 L (27.0-32.0) pg MCHC 30.4 L (32.0-37.0) g/dL RDW 17.4 H (11.5-14.5) % Immature Gran # 0.05 H (0.00-0.04) 10*3/uL Neutrophils # 8.87 H (1.80-7.70) 10*3/uL BUN 6 L (7-17) mg/dL Iron (50-170) UG/DL % Saturation (12.00-45.00) Group A Strep (PCR) DETECTED A (Not Detectd) 06/08/24 Range/Units 04:24 WBC (4.50-10.00) 10*3/uL RBC (4.10-5.20) 10*6/uL Hgb (12.0-15.0) g/dL Hct (37.2-46.3) % MCV (80.0-97.0) fL MCH (27.0-32.0) pg MCHC (32.0-37.0) g/dL RDW (11.5-14.5) % Immature Gran # (0.00-0.04) 10*3/uL Neutrophils # (1.80-7.70) 10*3/uL BUN (7-17) mg/dL Iron 14 L (50-170) UG/DL % Saturation 3.65 L (12.00-45.00) Group A Strep (PCR) (Not Detectd) Assessment and Plan Assessment: 28-year-old female with nonspecific abdominal pain likely gastroenteritis Continue Rocephin Flagyl Advance diet to regular diet New diagnosis of strep A If tolerating diet and pain improves discharge tomorrow 5 4 Time with Patient: Less than 30
[2024-06-08] MEDS ORDERED: MELATONIN 5 MG TABLET PO PRN (13:06)
[2024-06-08] MEDS: ACETAMINOPHEN TAB 325 MG TAB PO PRN (15:08)
--- NOTE | 2024-06-08 16:21 | US ---
EXAMINATION TYPE: US transvaginal DATE OF EXAM: 06/08/2024 COMPARISON: CT 2024 CLINICAL INDICATION: Female, 28 years old with history of r/o PID; R/O PID. . Hx 4 C sections. TECHNIQUE: Transvaginal (TV). Doppler imaging: Not performed. FINDINGS: Date of LMP: 05/12/2024 EXAM MEASUREMENTS: Uterus: 9.4 x 5.6 x 4.7 cm Endometrial Stripe: 1.82 cm Right Ovary: 3.6 x 2.6 x 2.0 cm Left Ovary: 7.8 x 5.0 x 4.6 cm 1. Uterus: Retroverted *Subcentimeter anechoic areas seen in cervix. Heterogeneous. Appears thickene d. 2. Endometrium: Measures 1.82 cm. 3. Right Ovary: wnl 4. Left Ovary: Enlarged. *Complex area seen: 5.7 x 4.7 x 4.1 cm. *Arterial and venous waveforms noted , performed due to enlarged ovary. 5. Bilateral Adnexa: *Prominent vessels seen in bilateral adnexa measure up to 5.9 mm on the right a nd mm on the left. 6. Posterior cul-de-sac: Fluid seen within IMPRESSION: 1. Complex left ovarian lesion could reflect a hemorrhagic cyst, infected lesion as well as endometri maria l. Correlate clinically. O-RADS 2021 [email or web address] [facility], , 06/08/2024 4:18 PM
[2024-06-09 08:32] VITALS: BP 120/75; PULSE 54; RESP 16; TEMP 98.5
--- NOTE | 2024-06-09 09:07 | P.PN ---
Subjective Progress Note Date: 06/09/24 Hospital Course: Patient is a 28-year-old female presented to the hospital with complaints of post-coital lower abdominal pain. Pt was found to have ovarian cyst, enteritis on CT scan and was started on empiric abx. [employer] consulted for ovarian cyst and r/o of PID. Gen Sx admitted patient for abdominal pain. Pt also incidentally found to have strep throat. HDS on admission. Improved with abx. Vitals: Signs Reviewed Physical Exam: General: nontoxic, no distress, appears at stated age Derm: warm, dry, intact Head: atraumatic, normocephalic, symmetric Eyes: EOMI, anicteric sclera Mouth: no lip lesion, mucus membranes moist Cardiovascular: S1 S2 reg, no murmur, rubs, or gallops Lungs: CTA bilateral, no rhonchi, no rales, no accessory muscle use Abdominal: soft, tender to palpataion mostly in suprapubic region, no tenderness in right upper/lower quadrant, no appreciable organomegaly Extremities: no gross muscle atrophy, no edema, no contractures Neuro: Alert, Oriented, CNII-XII grossly intact, gait normal Psych: well appearing, appropriate affect Data Received Today: Imaging: Transvaginal US: thickened endometrium, cyst is complex and could be hemorrhagic vs infectious vs endometrioma Assessment and Plan: Patient is a 28-year-old female with no significant medical history presenting with acute abdominal pain. #. Sepsis likely secondary to infectious enteritis vs Strep Throat #. Abdominal Pain 2/2 enteritis vs hemorrhagic ovarian cyst Telemetry monitoring LR at 130 cc an hour Lactoferrin and stool cultures pending No blood cultures obtained prior to antibiotics, blood cultures are pending Currently on Rocephin 1 g IVPB q24hr and Flagyl 500 mg IVPB q8hr which should cover gram negative and anaerobes, day #3 HIV/Syphilis(-)/GC/Chlamydia labs pending OGBYN consulted, transvaginal US as above, defer to them for recs, if no need for surgical intervention, then pt is cleared for d/c home with abx x 10 days total (7 more days) with augmentin 875-125mg BID, flagyl 500mg TID #. Strep pharyngitis Group A strep PCR positive Rocephin 1 gm IVPB q 24hr, day #3 Cepacol lozenge and mucinex prn #. Iron Deficiency anemia Hemoglobin 9.7, MCV 73.3 Iron 14, TIBC 384, ferritin 27.5, transferrin 274 No signs of active bleeding [facility] 05/12/2024 Ferrous sulfate 325 mg PO every other day AC-breakfast along with vitamin C #. Vaginal discharge Possible vulvovaginal candidiasis Patient declines any treatment at this time Follow GC/Chlamydia DVT prophylaxis, GI, ppx, pain management deferred to primary surgery service Code status: Full code Dictation was produced using [employer]arr[employer] dictation software. please excuse any grammatical, word or spelling errors. Objective - Vital Signs Vital signs: Vital Signs Temp 98.5 F 06/09/24 07:27 Pulse 54 L 06/09/24 07:27 Resp 16 06/09/24 07:27 BP 120/75 06/09/24 07:27 Pulse Ox 99 06/09/24 07:27 FiO2 Intake & Output 06/08/24 06/09/24 06/09/24 18:59 06:59 18:59 Intake Total 540 Output Total 1150 Balance -1150 540 Intake: Oral 540 Output: Urine 1150 Other: # Voids 1 # Bowel Movements 1 - Labs CBC & Chem 7: 06/08/24 04:24 06/08/24 04:24 Labs: Abnormal Lab Results - Last 24 Hours (Table) 06/08/24 Range/Units 04:24 Iron 14 L (50-170) UG/DL % Saturation 3.65 L (12.00-45.00) Microbiology - Last 24 Hours (Table) 06/07/24 17:12 Blood Culture - Preliminary Blood
[2024-06-10 13:26] LABS: HIV 2 AB Non-Reactive (Non-Reactive); HIV AB P24 Non-Reactive (Non-Reactive); HIV P24 AG Non-Reactive (Non-Reactive)
[2024-06-11 14:29] LABS: N. gonorrhoeae,PCR Negative (Negative)
[2024-06-11 14:36] LABS: C. trachomatis,PCR Negative (Negative)
== END 2024-06-09 10:04 | disposition home or self-care (01) ==
LOC: EC 02:16 → 4SSUR 04:31
PROVIDERS: ADMIT Surgery; ATTEND Surgery
DX: A41.9 Sepsis, unspecified organism (principal); A09 Infectious gastroenteritis and colitis, unspecified; N83.209 Unspecified ovarian cyst, unspecified side; J02.0 Streptococcal pharyngitis; D50.9 Iron deficiency anemia, unspecified; N89.8 Other specified noninflammatory disorders of vagina; F41.9 Anxiety disorder, unspecified; R05.9 Cough, unspecified; Z88.2 Allergy status to sulfonamides
CPT/HCPCS: 96376 ×3; 96361 ×2; 96365 ×2; 96366 ×3; 96367; 96375 ×2; 99285; 36415; 87651; 80053; 80048; 82728; 82150; 83540; 83550; 83605; 83690; 83735; 85025 ×2; 86140; 81003; 81025; 87040; 87491 ×2; 87591 ×2; 86780; 87045; 83630; 87046; 87390; 71046; 93976; 76830; 74177; G0378 ×3; J2270 ×2; J0696 ×3; J0295; Q9967; J1836 ×3; J2470 ×3